=== PATIENT | female | born 1970 | race Caucasian/White ===

== ENCOUNTER 2016-04-18 00:07 | Emergency (ER) | payer OTHER ==
--- NOTE | 2016-04-18 01:06 | ED NURSING NOTES ---
Clinical Report - Nurses [facility] [address] [place] [address] 04/18/2016 0:08 [id number] Triage time 00:05 Apr 18 2016. Acuity: LEVEL 4. Chief Complaint: TOOTHACHE and CHIPPED TOOTH. SEPSIS SCREEN: Sepsis Screen: negative. Negative (no infection suspected/documented). HELEN COMA SCORE: Helen Coma Scale: 15- eyes open spontaneously (4); best verbal response- oriented x 4 (5); best motor response- obeys commands (6). --00:21 Kassi Be 00:12 04/18/16. BP: 125/79. HR: 110. RR: 20. O2 saturation: 97% on room air. Temp: 98.3 F (oral). Pain level now: 01/24. --00:21 Kassi Be. Weight: 91.6 kg stated. Height/Length: 67 inches Per Patient. BMI: 31.7. --00:13 Kassi Be. Medications Atenolol Oral 25 mg, daily. Gabapentin Oral (Tablet 800 mg), 3x a day. Omeprazole Oral 40 mg, daily. --00:14 Kassi Be Lactulose Oral. --00:14 Kassi Be Amitriptyline HCl Oral. --00:15 Kassi Be Keppra Oral. --00:15 Kassi Be Oxycodone-Acetaminophen Oral. --00:15 Kassi Be. Allergies Demerol.(nausea) Fentanyl. Probable(itching) --00:14 Kassi Be. Medication/allergy information source: the patient. --00:21 Kassi Be. History Arrived by EMS. Historian: patient. Accompanied by family. Primary physician (philip rangel). Onset. (2 days). ( Patient states she broke off a tooth on Monday. She reports that her pain has been unbearable.). She has no dental appointment scheduled. 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 See EMS report. PAST MEDICAL HX: Dental caries. Immunizations: up-to-date. SOCIAL HX: Never smoker. Regular alcohol use. (States she has been drinking heavily for the last two days due to pain). No drug use. No infectious disease exposure. ABUSE ASSESSMENT: No report of abuse. FALL RISK ASSESSMENT: Fall risk assessment completed. No fall risk identified. NUTRITIONAL RISK ASSESSMENT: The nutritional risk assessment revealed no deficiencies. FUNCTIONAL ASSESSMENT: Functional assessment: no impairments noted. LEARNING NEEDS ASSESSMENT: The learning needs assessment revealed no barriers. SKIN INTEGRITY ASSESSMENT: Skin integrity risk assessment completed. No skin integrity risk identified. --00:21 Kassi Be. PROBLEMS: Nausea. Hypertension. Anxiety Reaction. --00:20 Kassi Be. ADDITIONAL SURGERIES: Appendectomy. Back Surgery. Carpal Tunnel Surgery. . Hip Surgery. Knee Surgery. Tonsillectomy. --00: Kassi Be. Interventions ID band on patient. To treatment room. --00: Kassi Be. PHYSICAL ASSESSMENT Ambulatory to room. GENERAL / NEURO / PSYCH: Alert. Oriented X 4. Appears in no acute distress. HEENT: Extensive dental decay (left upper teeth, left lower teeth). RESPIRATORY: Respirations not labored. SKIN: Skin is warm and dry. --00:22 Kassi Be. NURSING PROGRESS NOTES Warming measures: blanket applied. Reassurance given to the patient. Two patient identifiers checked. Call light placed in reach. Side rails up x 1. Bed placed in lowest position. Brakes of bed on. Patient ready for evaluation- chart flagged. --00:22 Kassi Be 01:04/18/2016 Amoxicillin PO Capsules 500 mg given. Allergies verified and confirmed 5 rights. --01:05 Kassi Be 01:04/18/2016 Hydrocodone-APAP (Hydrocodone-Acetaminophen) PO 5/325 mg Tablets 1 tab given. Allergies verified, confirmed 5 rights and sedative warning given to the patient. --01:05 Kassi Be ( Patient given list of dental resources). --01:06 Kassi Be 01:06 04/18/16. BP: 109/57. HR: 113. RR: 20. O2 saturation: 100% on room air. Pain level now: 01/24. --01:06 Kassi Be. DISPOSITION / DISCHARGE Condition at departure: stable. No learning barriers present. Discharge instructions provided and reviewed with the patient. Reviewed medication(s) side effects, precautions, dosing and course information. Prescription(s) given to the patient. Reviewed need for increased fluid intake. Patient verbalized understanding. Written instructions provided in Bulgarian. ( Patient given resources for dental appointment. Patient advised to get next available dental appointment. Instructed to watch for signs of infection.). The patient was discharged by the physician. She was discharged home and accompanied by family. She left the Emergency Department ambulatory and via ([employer]). Driving ([employer]). ( 01:06 04/18/16. BP: 109/57. HR: 113. RR: 20. O2 saturation: 100% on room air. Pain level now: 01/24. 1:06 Kassi Be). --01:13 Kassi Be. Locked/Released at 04/18/2016 4:50 by Kassi Be,
--- NOTE | 2016-04-18 01:06 | ED CLINICAL REPORT ---
Clinical Report - Physicians/Mid Levels [facility] [address] [place] [address] 04/18/2016 0:08 Patient: AMRIK CHIANG Time Seen: 00:34. Arrived- By ambulance. Historian- patient and EMS personnel. HISTORY OF PRESENT ILLNESS Chief Complaint: DENTAL PAIN. This started just prior to arrival and is still present. Pain described as moderate. No sore throat, mouth sores, nasal discharge or congestion or ear pain. No swollen jaw or face, jaw pain or facial pain. She has had toothache. Similar symptoms previously: Recent medical care: Not recently seen/assessed. REVIEW OF SYSTEMS No fever, eye discomfort, cough, difficulty breathing or chest pain. No nausea, diarrhea, abdominal pain, difficulty with urination or headache. No fainting episodes, joint pain, skin rash, enlarged lymph nodes or vomiting. Denies current . All systems otherwise negative, except as recorded above. PAST HISTORY Problems: Dental Caries. Hypertension. Anxiety Reaction. LNMP - Last Normal Menstrual Period. Additional Surgeries: Appendectomy. Back Surgery. Carpal Tunnel Surgery. . Hip Surgery. Knee Surgery. Tonsillectomy. Medications: Oxycodone-Acetaminophen Oral. Keppra Oral. Amitriptyline HCl Oral. Lactulose Oral. Atenolol Oral 25 mg, daily. Gabapentin Oral (Tablet 800 mg), 3x a day. Omeprazole Oral 40 mg, daily. Allergies: Demerol.(nausea) Fentanyl. Probable(itching). SOCIAL HISTORY Never smoker. Alcohol use. No drug use. ADDITIONAL NOTES The nursing notes have been reviewed. PHYSICAL EXAM Vital Signs: 04/18/2016 00:12 BP: 125/79. HR: 110. RR: 20. O2 saturation: 97%. Temp: 98.3 F. Pain level now: 10/10. Have been reviewed. Appearance: Alert. No acute distress. Head: Normal external inspection. Eyes: Pupils equal, round and reactive to light. Conjunctivae and eyelids normal. ENT: Moderate, localized dental decay with gingival tenderness (upper left second molar). No gingival induration, swelling or fluctuance. Nose normal. Lips normal. Gums normal. No trismus present. Neck: Normal inspection. No adenopathy. Neck supple. CVS: Normal heart rate and rhythm. Heart sounds normal. Pulses normal. Respiratory: No respiratory distress. Breath sounds normal. Skin: Normal skin color. No rash. Normal skin turgor. Extremities: Extremities exhibit normal ROM. Neuro: Oriented X 3. No motor deficit. No sensory deficit. LABS, X-RAYS, AND EKG Pulse Oximetry: 04/18/2016 00:12 O2 saturation: 97%. (FIO2 - room air). Interpretation: normal. PROGRESS AND PROCEDURES Course of Care: PT was treated with amoxicillin, ibuprofen (pt refused this), and Vicodin. Patient counseled in person regarding the patient's stable condition, diagnosis and need for follow-up. Concerns were addressed. Old medical records reviewed. Disposition: Discharged. Condition: stable and improved. CLINICAL IMPRESSION Moderate dental pain. INSTRUCTIONS Drink plenty of fluids. Warnings: Further evaluation is necessary. SEDATIVE MEDICATION: You were given sedative medication during your visit. Do not drive or operate dangerous machinery. GENERAL WARNINGS: Return or contact your physician immediately if your condition worsens or changes unexpectedly, if not improving as expected, or if other problems arise. Your Current Medications: CONTINUE TAKING THE FOLLOWING MEDICATIONS: Amitriptyline HCl Oral. Atenolol Oral : 25 mg daily. Gabapentin Oral : Tablet 800 mg, 3x a day. Keppra Oral. Lactulose Oral. Omeprazole Oral : 40 mg daily. Oxycodone-Acetaminophen Oral. Prescription Medications: Hydrocodone/APAP 5mg / 325mg: take 1-2 orally every 6 hours as needed for pain. Dispense fifteen (15). No refill. Amoxicillin 500 mg tablets: take 1 orally every 8 hours for 10 days. No refills. Follow-up: Follow up with a dentist. Call for the next available appointment. Understanding of the discharge instructions verbalized by patient. (Electronically signed by Aisha Swanson MD 04/24/2016 21:30)
--- NOTE | 2016-04-18 01:06 | ED NURSING NOTES ---
Clinical Report - Nurses [facility] [address] [place] [address] 04/18/2016 0:08 [id number] Triage time 00:05 Apr 18 2016. Acuity: LEVEL 4. Chief Complaint: TOOTHACHE and CHIPPED TOOTH. SEPSIS SCREEN: Sepsis Screen: negative. Negative (no infection suspected/documented). HELEN COMA SCORE: Helen Coma Scale: 15- eyes open spontaneously (4); best verbal response- oriented x 4 (5); best motor response- obeys commands (6). --00:21 Kassi Be 00:12 04/18/16. BP: 125/79. HR: 110. RR: 20. O2 saturation: 97% on room air. Temp: 98.3 F (oral). Pain level now: 01/24. --00:21 Kassi Be. Weight: 91.6 kg stated. Height/Length: 67 inches Per Patient. BMI: 31.7. --00:13 Kassi Be. Medications Atenolol Oral 25 mg, daily. Gabapentin Oral (Tablet 800 mg), 3x a day. Omeprazole Oral 40 mg, daily. --00:14 Kassi Be Lactulose Oral. --00:14 Kassi Be Amitriptyline HCl Oral. --00:15 Kassi Be Keppra Oral. --00:15 Kassi Be Oxycodone-Acetaminophen Oral. --00:15 Kassi Be. Allergies Demerol.(nausea) Fentanyl. Probable(itching) --00:14 Kassi Be. Medication/allergy information source: the patient. --00:21 Kassi Be. History Arrived by EMS. Historian: patient. Accompanied by family. Primary physician (philip rangel). Onset. (2 days). ( Patient states she broke off a tooth on Monday. She reports that her pain has been unbearable.). She has no dental appointment scheduled. Treatment PSYCHOLOGIST EDUCATIONAL: See EMS report. EMS treatment PSYCHOLOGIST EDUCATIONAL verbally communicated. See EMS report. PAST MEDICAL HX: Dental caries. Immunizations: up-to-date. SOCIAL HX: Never smoker. Regular alcohol use. (States she has been drinking heavily for the last two days due to pain). No drug use. No infectious disease exposure. ABUSE ASSESSMENT: No report of abuse. FALL RISK ASSESSMENT: Fall risk assessment completed. No fall risk identified. NUTRITIONAL RISK ASSESSMENT: The nutritional risk assessment revealed no deficiencies. FUNCTIONAL ASSESSMENT: Functional assessment: no impairments noted. LEARNING NEEDS ASSESSMENT: The learning needs assessment revealed no barriers. SKIN INTEGRITY ASSESSMENT: Skin integrity risk assessment completed. No skin integrity risk identified. --00:21 Kassi Be. PROBLEMS: Nausea. Hypertension. Anxiety Reaction. --00:20 Kassi Be. ADDITIONAL SURGERIES: Appendectomy. Back Surgery. Carpal Tunnel Surgery. . Hip Surgery. Knee Surgery. Tonsillectomy. --00: Kassi Be. Interventions ID band on patient. To treatment room. --00: Kassi Be. PHYSICAL ASSESSMENT Ambulatory to room. GENERAL / NEURO / PSYCH: Alert. Oriented X 4. Appears in no acute distress. HEENT: Extensive dental decay (left upper teeth, left lower teeth). RESPIRATORY: Respirations not labored. SKIN: Skin is warm and dry. --00:22 Kassi Be. NURSING PROGRESS NOTES Warming measures: blanket applied. Reassurance given to the patient. Two patient identifiers checked. Call light placed in reach. Side rails up x 1. Bed placed in lowest position. Brakes of bed on. Patient ready for evaluation- chart flagged. --00:22 Kassi Be 01:04/18/2016 Amoxicillin PO Capsules 500 mg given. Allergies verified and confirmed 5 rights. --01:05 Kassi Be 01:04/18/2016 Hydrocodone-APAP (Hydrocodone-Acetaminophen) PO 5/325 mg Tablets 1 tab given. Allergies verified, confirmed 5 rights and sedative warning given to the patient. --01:05 Kassi Be ( Patient given list of dental resources). --01:06 Kassi Be 01:06 04/18/16. BP: 109/57. HR: 113. RR: 20. O2 saturation: 100% on room air. Pain level now: 01/24. --01:06 Kassi Be. DISPOSITION / DISCHARGE Condition at departure: stable. No learning barriers present. Discharge instructions provided and reviewed with the patient. Reviewed medication(s) side effects, precautions, dosing and course information. Prescription(s) given to the patient. Reviewed need for increased fluid intake. Patient verbalized understanding. Written instructions provided in Venezuelan. ( Patient given resources for dental appointment. Patient advised to get next available dental appointment. Instructed to watch for signs of infection.). The patient was discharged by the physician. She was discharged home and accompanied by family. She left the Emergency Department ambulatory and via ([employer]). Driving ([employer]). ( 01:06 04/18/16. BP: 109/57. HR: 113. RR: 20. O2 saturation: 100% on room air. Pain level now: 01/24. 1:06 Kassi Be). --01:13 Kassi Be. Locked/Released at 04/18/2016 4:50 by Kassi Be,
--- NOTE | 2016-04-18 01:06 | ED ORDER SUMMARY ---
..... Patient: AMRIK CHIANG OrderSheet [facility] VisitID: [id number] [place] [address] 45y, F Registration Date/Time: 04/18/2016 ORDER SHEET Weight: 91.6 kg (stated) Allergies: Demerol, Fentanyl GENERAL ORDERS: MEDICATION ORDERS: Amoxicillin PO 500 mg (NOW) (00:56 04/18/2016 Braden GONZALEZ) (Ack 0:58 HSoule) (1:05 HSoule) Hydrocodone-APAP PO 5/325 mg (NOW, HIGH ALERT MEDICATION) (00:56 04/18/2016 Braden GONZALEZ) (Ack 0:58 HSoule) (1:05 HSoule) Ibuprofen PO 800 mg (NOW) (00:56 04/18/2016 Braden GONZALEZ) (Ack 0:58 HSoule) (Cancelled: Patient Refusal, patient states she cannot have Ibuprofen 1:06 HSoule) IV FLUIDS: ORDER SHEET NOTES: [Electronically signed by Kassi Be (04:50 04/18/2016)] [Electronically signed by Aisha Swanson MD (21:30 04/24/2016)] [Electronically locked/signed by Kassi Be (04:50 04/18/2016)]
--- NOTE | 2016-04-18 01:06 | ED ORDER SUMMARY ---
..... Patient: AMRIK CHIANG OrderSheet [facility] VisitID: [id number] [place] [address] 45y, F Registration Date/Time: 04/18/2016 ORDER SHEET Weight: 91.6 kg (stated) Allergies: Demerol, Fentanyl GENERAL ORDERS: MEDICATION ORDERS: Amoxicillin PO 500 mg (NOW) (00:56 04/18/2016 Braden GONZALEZ) (Ack 0:58 HSoule) (1:05 HSoule) Hydrocodone-APAP PO 5/325 mg (NOW, HIGH ALERT MEDICATION) (00:56 04/18/2016 Bradne GONZALEZ) (Ack 0:58 HSoule) (1:05 HSoule) Ibuprofen PO 800 mg (NOW) (00:56 04/18/2016 Braden GONZALEZ) (Ack 0:58 HSoule) (Cancelled: Patient Refusal, patient states she cannot have Ibuprofen 1:06 HSoule) IV FLUIDS: ORDER SHEET NOTES: [Electronically signed by Kassi Be (04:50 04/18/2016)] [Electronically signed by Aisha Swanson MD (21:30 04/24/2016)] [Electronically locked/signed by Kassi Be (04:50 04/18/2016)]
--- NOTE | 2016-04-24 21:30 | ED DISCHARGE INSTRUCTIONS ---
Patient: AMRIK CHIANG General Instructions [facility] VisitID: [id number] [place] [address] 45y, F Registration Date/Time: 04/18/2016 Moderate dental pain. INSTRUCTIONS Drink plenty of fluids. Warnings: Further evaluation is necessary. SEDATIVE MEDICATION: You were given sedative medication during your visit. Do not drive or operate dangerous machinery. GENERAL WARNINGS: Return or contact your physician immediately if your condition worsens or changes unexpectedly, if not improving as expected, or if other problems arise. Your Current Medications: CONTINUE TAKING THE FOLLOWING MEDICATIONS: Amitriptyline HCl Oral. Atenolol Oral : 25 mg daily. Gabapentin Oral : Tablet 800 mg, 3x a day. Keppra Oral. Lactulose Oral. Omeprazole Oral : 40 mg daily. Oxycodone-Acetaminophen Oral. Prescription Medications: Hydrocodone/APAP 5mg / 325mg: take 1-2 orally every 6 hours as needed for pain. Dispense fifteen (15). No refill. Amoxicillin 500 mg tablets: take 1 orally every 8 hours for 10 days. No refills. Follow-up: Follow up with a dentist. Call for the next available appointment. Understanding of the discharge instructions verbalized by patient. ADDITIONAL INFORMATION Dental Pain A crack or cavity in the tooth, which exposes the sensitive inner area of the tooth can cause tooth pain. An infection in the gum or the root of the tooth can cause pain and swelling. The pain is often made worse by drinking hot or cold fluids, or biting on hard foods. Pain may spread from the tooth to the ear or jaw on the same side. Home Care: Avoid hot and cold foods and liquids since your tooth may be sensitive to temperature changes. If your tooth is chipped or cracked, or if there is a large open cavity, apply OIL OF CLOVES (available eyad-xow-osteugl in drug stores) directly to the tooth to reduce pain. Some pharmacies carry an xwnd-daq-nwcgtua "toothache kit." This contains a paste, which can be applied over the exposed tooth to decrease sensitivity. A cold pack on your jaw over the sore area may help reduce pain. You may use acetaminophen (Tylenol) or ibuprofen (Motrin, Advil) to control pain, unless another medicine was prescribed. [ NOTE: If you have chronic liver or kidney disease or ever had a stomach ulcer or GI bleeding, talk with your doctor before using these medicines.] If you have signs of an infection, an antibiotic will be given. Take it as directed. Follow-Up as directed with a dentist. Your pain may go away with the treatment given. However, only a dentist can fully evaluate and treat the cause and prevent the pain from coming back again. TOOTHACHE IS A SIGN OF DISEASE IN YOUR TOOTH AND SHOULD BE EXAMINED AND TREATED BY A DENTIST. Get Prompt Medical Attention if any of the following occur: Your face becomes swollen or red Pain worsens or spreads to the neck Fever over 100.4 F (38.0 C) Unusual drowsiness; headache or stiff neck; weakness or fainting Pus drains from the tooth Difficulty swallowing or breathing You have been given the following additional information: Dental Pain (Electronically signed by Aisha Swanson MD 04/24/2016 21:30)
--- NOTE | 2016-04-24 21:30 | ED MAR SUMMARY ---
..... Medication Administration Record [facility] [address] [place] [address] Patient: AMRIK CHIANG Visit ID: [id number] 45y, F Weight: 91.6 kg Height/Length: 67 in BMI: 31.7 ALLERGIES: Demerol, Fentanyl Given 01:04/18/2016 Kassi Be, Medication Administered: AMOXICILLIN [PO], Dose: 500 mg Capsules PO. Medication Ordered: Amoxicillin PO 500 mg (NOW). Given 01:04/18/2016 Kassi Be, Medication Administered: HYDROCODONE-APAP [PO] (HYDROCODONE-ACETAMINOPHEN), Dose: 1 tab 5/325 mg Tablets PO. Medication Ordered: Hydrocodone-APAP PO 5/325 mg (NOW, HIGH ALERT MEDICATION).
--- NOTE | 2016-04-24 21:30 | ED MAR SUMMARY ---
..... Medication Administration Record [facility] [address] [place] [address] Patient: AMRIK CHIANG Visit ID: [id number] 45y, F Weight: 91.6 kg Height/Length: 67 in BMI: 31.7 ALLERGIES: Demerol, Fentanyl Given 01:04/18/2016 Kassi Be, Medication Administered: AMOXICILLIN [PO], Dose: 500 mg Capsules PO. Medication Ordered: Amoxicillin PO 500 mg (NOW). Given 01:04/18/2016 Kassi Be, Medication Administered: HYDROCODONE-APAP [PO] (HYDROCODONE-ACETAMINOPHEN), Dose: 1 tab 5/325 mg Tablets PO. Medication Ordered: Hydrocodone-APAP PO 5/325 mg (NOW, HIGH ALERT MEDICATION).
--- NOTE | 2016-04-24 21:30 | ED MED RECONCILIATION SUMMARY ---
Patient: AMRIK CHIANG Medication Reconciliation Report [facility] VisitID: [id number] [address] [place] [address] 45y, F Registration Date/Time: 04/18/2016 Weight: 91.6 kg Height/Length: 67 in. BMI: 31.7 ALLERGIES: Demerol, Fentanyl The patient's Home Medications are listed below: CONTINUE TAKING THE FOLLOWING MEDICATIONS: Amitriptyline HCl Oral Atenolol Oral 25 mg, daily Gabapentin Oral (800 mg), 3x a day Keppra Oral Lactulose Oral Omeprazole Oral 40 mg, daily Oxycodone-Acetaminophen Oral The source(s) of the original Home Medication information: patient The following Medications were given to the patient in the Emergency Department: Amoxicillin [PO] PO 500 mg, administered: 04/18/2016 1:05:00 AM Hydrocodone-APAP [PO] PO 1 tab, administered: 04/18/2016 1:05:00 AM The following Medications were prescribed to the patient: Hydrocodone/APAP 5mg / 325mg: take 1-2 orally every 6 hours as needed for pain. Dispense fifteen (15). No refill. -- Aisha Swanson MD Amoxicillin 500 mg tablets: take 1 orally every 8 hours for 10 days. No refills. -- Aisha Swanson MD
--- NOTE | 2016-04-24 21:30 | ED DISCHARGE INSTRUCTIONS ---
Patient: AMRIK CHIANG General Instructions [facility] VisitID: [id number] [place] [address] 45y, F Registration Date/Time: 04/18/2016 Moderate dental pain. INSTRUCTIONS Drink plenty of fluids. Warnings: Further evaluation is necessary. SEDATIVE MEDICATION: You were given sedative medication during your visit. Do not drive or operate dangerous machinery. GENERAL WARNINGS: Return or contact your physician immediately if your condition worsens or changes unexpectedly, if not improving as expected, or if other problems arise. Your Current Medications: CONTINUE TAKING THE FOLLOWING MEDICATIONS: Amitriptyline HCl Oral. Atenolol Oral : 25 mg daily. Gabapentin Oral : Tablet 800 mg, 3x a day. Keppra Oral. Lactulose Oral. Omeprazole Oral : 40 mg daily. Oxycodone-Acetaminophen Oral. Prescription Medications: Hydrocodone/APAP 5mg / 325mg: take 1-2 orally every 6 hours as needed for pain. Dispense fifteen (15). No refill. Amoxicillin 500 mg tablets: take 1 orally every 8 hours for 10 days. No refills. Follow-up: Follow up with a dentist. Call for the next available appointment. Understanding of the discharge instructions verbalized by patient. ADDITIONAL INFORMATION Dental Pain A crack or cavity in the tooth, which exposes the sensitive inner area of the tooth can cause tooth pain. An infection in the gum or the root of the tooth can cause pain and swelling. The pain is often made worse by drinking hot or cold fluids, or biting on hard foods. Pain may spread from the tooth to the ear or jaw on the same side. Home Care: Avoid hot and cold foods and liquids since your tooth may be sensitive to temperature changes. If your tooth is chipped or cracked, or if there is a large open cavity, apply OIL OF CLOVES (available uuki-dki-szufafc in drug stores) directly to the tooth to reduce pain. Some pharmacies carry an sahk-arl-qtgmnuu "toothache kit." This contains a paste, which can be applied over the exposed tooth to decrease sensitivity. A cold pack on your jaw over the sore area may help reduce pain. You may use acetaminophen (Tylenol) or ibuprofen (Motrin, Advil) to control pain, unless another medicine was prescribed. [ NOTE: If you have chronic liver or kidney disease or ever had a stomach ulcer or GI bleeding, talk with your doctor before using these medicines.] If you have signs of an infection, an antibiotic will be given. Take it as directed. Follow-Up as directed with a dentist. Your pain may go away with the treatment given. However, only a dentist can fully evaluate and treat the cause and prevent the pain from coming back again. TOOTHACHE IS A SIGN OF DISEASE IN YOUR TOOTH AND SHOULD BE EXAMINED AND TREATED BY A DENTIST. Get Prompt Medical Attention if any of the following occur: Your face becomes swollen or red Pain worsens or spreads to the neck Fever over 100.4 F (38.0 C) Unusual drowsiness; headache or stiff neck; weakness or fainting Pus drains from the tooth Difficulty swallowing or breathing You have been given the following additional information: Dental Pain (Electronically signed by Aisha Swanson MD 04/24/2016 21:30)
--- NOTE | 2016-04-24 21:30 | ED MED RECONCILIATION SUMMARY ---
Patient: AMRIK CHIANG Medication Reconciliation Report [facility] VisitID: [id number] [address] [place] [address] 45y, F Registration Date/Time: 04/18/2016 Weight: 91.6 kg Height/Length: 67 in. BMI: 31.7 ALLERGIES: Demerol, Fentanyl The patient's Home Medications are listed below: CONTINUE TAKING THE FOLLOWING MEDICATIONS: Amitriptyline HCl Oral Atenolol Oral 25 mg, daily Gabapentin Oral (800 mg), 3x a day Keppra Oral Lactulose Oral Omeprazole Oral 40 mg, daily Oxycodone-Acetaminophen Oral The source(s) of the original Home Medication information: patient The following Medications were given to the patient in the Emergency Department: Amoxicillin [PO] PO 500 mg, administered: 04/18/2016 1:05:00 AM Hydrocodone-APAP [PO] PO 1 tab, administered: 04/18/2016 1:05:00 AM The following Medications were prescribed to the patient: Hydrocodone/APAP 5mg / 325mg: take 1-2 orally every 6 hours as needed for pain. Dispense fifteen (15). No refill. -- Aisha Swanson MD Amoxicillin 500 mg tablets: take 1 orally every 8 hours for 10 days. No refills. -- Aisha Swanson MD
== END 2016-04-18 01:10 | disposition home or self-care (01) ==
LOC: ED SRH 00:07
DX: K08.89 Other specified disorders of teeth and supporting structures (principal); I10 Essential (primary) hypertension; Z79.899 Other long term (current) drug therapy; Z88.5 Allergy status to narcotic agent; Z88.8 Allergy status to other drugs, medicaments and biological substances

== ENCOUNTER 2016-05-07 22:27 | Emergency (ER) | payer OTHER ==
--- NOTE | 2016-05-07 23:16 | ED ORDER SUMMARY ---
..... Patient: AMRIK CHIANG OrderSheet [facility] VisitID: [id number] [place] [address] 45y, F Registration Date/Time: 05/07/2016 ORDER SHEET Weight: 93.4 kg (stated) Allergies: Demerol, Fentanyl, Ibuprofen, Hydrocodone GENERAL ORDERS: Lumbar Spine 2 or 3V Urgent (22:45 05/07/2016 Leah Ferro) (Ack 22:52 [facility] Crew Leader Gluing) (23:03 RFay) Hip 2V Right w AP Pelvis Urgent (22:45 05/07/2016 Leah Ferro) (Ack 22:52 [facility] Crew Leader Gluing) (23:03 RFay) Knee 4V Left Urgent (22:45 05/07/2016 Leah Ferro) (Ack 22:52 [facility] Crew Leader Gluing) (23:03 RFay) MEDICATION ORDERS: Tdap IM 0.5 mL (NOW, per protocol) (22:43 05/07/2016 JQuivey R.N. per protocol) (Ack 22:43 JQuivey R.N.) (22:48 JQuivey R.N.) Toradol IM 60 mg (NOW) (23:56 05/07/2016 Leah Ferro) (0:00 JQuivey R.N.) Previously tolerated IV FLUIDS: ORDER SHEET NOTES: [Electronically signed by Cooper Castaneda Dr. (23:45 05/07/2016)] [Electronically signed by Yonny Russell R.N. (01:46 05/08/2016)] [Electronically locked/signed by Yonny Russell R.N. (01:46 05/08/2016)]
--- NOTE | 2016-05-07 23:16 | ED ORDER SUMMARY ---
..... Patient: AMRIK CHIANG OrderSheet [facility] VisitID: [id number] [place] [address] 45y, F Registration Date/Time: 05/07/2016 ORDER SHEET Weight: 93.4 kg (stated) Allergies: Demerol, Fentanyl, Ibuprofen, Hydrocodone GENERAL ORDERS: Lumbar Spine 2 or 3V Urgent (22:45 05/07/2016 Leah Ferro) (Ack 22:52 [facility] Manifest Clerk) (23:03 RFay) Hip 2V Right w AP Pelvis Urgent (22:45 05/07/2016 Leah Ferro) (Ack 22:52 [facility] Manifest Clerk) (23:03 RFay) Knee 4V Left Urgent (22:45 05/07/2016 Leah Ferro) (Ack 22:52 [facility] Manifest Clerk) (23:03 RFay) MEDICATION ORDERS: Tdap IM 0.5 mL (NOW, per protocol) (22:43 05/07/2016 JQuivey R.N. per protocol) (Ack 22:43 JQuivey R.N.) (22:48 JQuivey R.N.) Toradol IM 60 mg (NOW) (23:56 05/07/2016 Leah Ferro) (0:00 JQuivey R.N.) Previously tolerated IV FLUIDS: ORDER SHEET NOTES: [Electronically signed by Cooper Castaneda Dr. (23:45 05/07/2016)] [Electronically signed by Yonny Russell R.N. (01:46 05/08/2016)] [Electronically locked/signed by Yonny Russell R.N. (01:46 05/08/2016)]
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
--- NOTE | 2016-05-08 01:46 | ED MAR SUMMARY ---
..... Medication Administration Record [facility] [address] [place] [address] Patient: AMRIK CHIANG Visit ID: [id number] 45y, F Weight: 93.4 kg Height/Length: 68 in BMI: 31.3 ALLERGIES: Hydrocodone, Ibuprofen, Demerol, Fentanyl Given 22:48 05/07/2016 Yonny Russell, R.N. Medication Administered: TDAP [IM], Dose: 0.5 mL IM. Medication Ordered: Tdap IM 0.5 mL (NOW, per protocol). Given 00:00 05/08/2016 Yonny Russell, R.N. Medication Administered: TORADOL [IM] (KETOROLAC TROMETHAMINE), Dose: 60 mg IM. Medication Ordered: Toradol IM 60 mg (NOW).
--- NOTE | 2016-05-08 01:46 | ED DISCHARGE INSTRUCTIONS ---
Patient: AMRIK CHIANG General Instructions [facility] VisitID: [id number] [place] [address] 45y, F Registration Date/Time: 05/07/2016 Muscle strain of the low back. Multiple superficial abrasions to the right hand and left hand and left knee. Multiple contusions with abrasion to the right hip and left knee. INSTRUCTIONS Apply ice for 20 minutes four times a day. Don't apply ice directly to skin. Your Current Medications: CONTINUE TAKING THE FOLLOWING MEDICATIONS: Amitriptyline HCl Oral. Atenolol Oral : 25 mg daily. Gabapentin Oral : Tablet 800 mg, 3x a day. Keppra Oral. Lactulose Oral. Omeprazole Oral : 40 mg daily. OxyCODONE HCl Oral : 10 mg, prn. Prescription Medications: Baclofen 10 mg: take 1 orally every 8 hours. Dispense twenty (20). No refills. Oxycodone/APAP 5 mg/325 mg: take 1 tablet orally every 6 hours as needed for pain. Dispense ten (10). No refill. Follow-up: Follow up with your doctor in about two days. Call for an appointment. Blood pressure screening was not performed during this visit because the patient has an active diagnosis of hypertension. The patient should follow up with a primary care provider for blood pressure management. ADDITIONAL INFORMATION Abrasions Abrasions are skin scrapes. Their treatment depends on how large and deep the abrasion is. Home Care: If you were given a bandage, change it once a day. If your bandage sticks to the wound, soak it in warm water until it loosens. Wash the area with soap and water to remove all the cream/ointment. You may do this in a sink, under a tub faucet or shower. Rinse off the soap and pat dry with a clean towel. Reapply cream/ointment according to your doctor's instructions. This will prevent infection and help prevent the bandage from sticking. Cover the wound with a fresh non-stick bandage (Telfa). Repeat steps 1 to 4 daily, or as directed by your doctor. If the bandage becomes wet or dirty, change it as soon as possible. You may use acetaminophen (Tylenol) or ibuprofen (Motrin, Advil) to control pain, unless another pain medicine was prescribed. [ NOTE : If you have chronic liver or kidney disease or ever had a stomach ulcer or GI bleeding, talk with your doctor before using these medicines.] Do not use ibuprofen in children under six months of age. Follow Up with your physician or this facility as directed by our staff. Most skin wounds heal within ten days. However, an infection may occur despite proper treatment. Therefore, look for the early signs of infection listed below. Get Prompt Medical Attention if any of the following occur: Increasing pain in the wound Increasing redness or swelling Pus coming from the wound Fever of 100.4F (38C) or higher, or as directed by your healthcare provider Back Pain [Acute Or Chronic] Back pain is usually caused by an injury to the muscles or ligaments of the spine. Sometimes the disks that separate each bone in the spine may bulge and cause pain by pressing on a nearby nerve. Back pain may also appear after a sudden twisting/bending force (such as in a car accident), after a simple awkward movement, or lifting something heavy with poor body positioning. In either case, muscle spasm is often present and adds to the pain. Acute back pain usually gets better in one to two weeks. Back pain related to disk disease, arthritis in the spinal joints or spinal stenosis (narrowing of the spinal canal) can become chronic and last for months or years. Unless you had a physical injury (for example, a car accident or fall) X-rays are usually not ordered for the initial evaluation of back pain. If pain continues and does not respond to medical treatment, x-rays and other tests may be performed at a later time. Home Care: You may need to stay in bed the first few days. But, as soon as possible, begin sitting or walking to avoid problems with prolonged bed rest (muscle weakness, worsening back stiffness and pain, blood clots in the legs). When in bed, try to find a position of comfort. A firm mattress is best. Try lying flat on your back with pillows under your knees. You can also try lying on your side with your knees bent up towards your chest and a pillow between your knees. Avoid prolonged sitting. This puts more stress on the lower back than standing or walking. During the first two days after injury, apply an ICE PACK to the painful area for 20 minutes every 2-4 hours. This will reduce swelling and pain. HEAT (hot shower, hot bath or heating pad) works well for muscle spasm. You can start with ice, then switch to heat after two days. Some patients feel best alternating ice and heat treatments. Use the one method that feels the best to you. You may use acetaminophen (Tylenol) or ibuprofen (Motrin, Advil) to control pain, unless another pain medicine was prescribed. [NOTE: If you have chronic liver or kidney disease or ever had a stomach ulcer or GI bleeding, talk with your doctor before using these medicines.] Be aware of safe lifting methods and do not lift anything over 15 pounds until all the pain is gone. Follow Up with your doctor or this facility if your symptoms do not start to improve after one week. Physical therapy may be needed. [NOTE: If X-rays were taken, they will be reviewed by a radiologist. You will be notified of any new findings that may affect your care.] Get Prompt Medical Attention if any of the following occur: Pain becomes worse or spreads to your legs Weakness or numbness in one or both legs Loss of bowel or bladder control Numbness in the groin or genital area Contusion,Soft Tissue You have a CONTUSION, which is a bruise with swelling and some bleeding under the skin. There are no broken bones. This injury takes a few days to a few weeks to heal. Home Care: 1) Keep the injured part elevated to reduce pain and swelling. This is especially important during the first 48 hours. 2) Make an ice pack (ice cubes in a plastic bag, wrapped in a towel) and apply for 20 minutes every 1-2 hours the first day. Continue this 3-4 times a day until the pain and swelling goes away. 3) You may use acetaminophen (Tylenol) or ibuprofen (Motrin, Advil) to control pain, unless another pain medicine was prescribed. [ NOTE : If you have chronic liver or kidney disease or ever had a stomach ulcer or GI bleeding, talk with your doctor before using these medicines.] Follow Up with your doctor or this facility if you are not improving within the next THREE days. [NOTE: If X-rays were taken, they will be reviewed by a radiologist. You will be notified of any new findings that may affect your care.] Get Prompt Medical Attention if any of the following occur: -- Pain or swelling increases -- Injured arm or leg becomes cold, blue, numb or tingly -- Redness, warmth or drainage from the skin Oxycodone Hydrochloride, Acetaminophen Oral tablet What is this medicine? ACETAMINOPHEN; OXYCODONE (a set a ALONA alana fen; ox i KOE done) is a pain reliever. It is used to treat mild to moderate pain. How should I use this medicine? Take this medicine by mouth with a full glass of water. Follow the directions on the prescription label. Take your medicine at regular intervals. Do not take your medicine more often than directed. Talk to your production control clerk regarding the use of this medicine in children. Special care may be needed. Patients over 65 years old may have a stronger reaction and need a smaller dose. What side effects may I notice from receiving this medicine? Side effects that you should report to your doctor or health foster care social worker as soon as possible: allergic reactions like skin rash, itching or hives, swelling of the face, lips, or tongue breathing difficulties, wheezing confusion light headedness or fainting spells severe stomach pain yellowing of the skin or the whites of the eyes Side effects that usually do not require medical attention (report to your doctor or health foster care social worker if they continue or are bothersome): dizziness drowsiness nausea vomiting What may interact with this medicine? alcohol antihistamines barbiturates like amobarbital, butalbital, butabarbital, methohexital, pentobarbital, phenobarbital, thiopental, and secobarbital benztropine drugs for bladder problems like solifenacin, trospium, oxybutynin, tolterodine, hyoscyamine, and methscopolamine drugs for breathing problems like ipratropium and tiotropium drugs for certain stomach or intestine problems like propantheline, homatropine methylbromide, glycopyrrolate, atropine, belladonna, and dicyclomine general anesthetics like etomidate, ketamine, nitrous oxide, propofol, desflurane, enflurane, halothane, isoflurane, and sevoflurane medicines for depression, anxiety, or psychotic disturbances medicines for sleep muscle relaxants naltrexone narcotic medicines (opiates) for pain phenothiazines like perphenazine, thioridazine, chlorpromazine, mesoridazine, fluphenazine, prochlorperazine, promazine, and trifluoperazine scopolamine tramadol trihexyphenidyl What if I miss a dose? If you miss a dose, take it as soon as you can. If it is almost time for your next dose, take only that dose. Do not take double or extra doses. Where should I keep my medicine? Keep out of the reach of children. This medicine can be abused. Keep your medicine in a safe place to protect it from theft. Do not share this medicine with anyone. Selling or giving away this medicine is dangerous and against the law. Store at room temperature between 20 and 25 degrees C (68 and 77 degrees F). Keep container tightly closed. Protect from light. This medicine may cause accidental overdose and if it is taken by other adults, children, or pets. Flush any unused medicine down the toilet to reduce the chance of harm. Do not use the medicine after the expiration date. What should I tell my health care provider before I take this medicine? They need to know if you have any of these conditions: brain tumor Crohn's disease, inflammatory bowel disease, or ulcerative colitis drink more than 3 alcohol containing drinks per day drug abuse or addiction head injury heart or circulation problems kidney disease or problems going to the bathroom liver disease lung disease, asthma, or breathing problems an unusual or allergic reaction to acetaminophen, oxycodone, other opioid analgesics, other medicines, foods, dyes, or preservatives or trying to get breast-feeding What should I watch for while using this medicine? Tell your doctor or health foster care social worker if your pain does not go away, if it gets worse, or if you have new or a different type of pain. You may develop tolerance to the medicine. Tolerance means that you will need a higher dose of the medication for pain relief. Tolerance is normal and is expected if you take this medicine for a long time. Do not suddenly stop taking your medicine because you may develop a severe reaction. Your body becomes used to the medicine. This does NOT mean you are addicted. Addiction is a behavior related to getting and using a drug for a non-medical reason. If you have pain, you have a medical reason to take pain medicine. Your doctor will tell you how much medicine to take. If your doctor wants you to stop the medicine, the dose will be slowly lowered over time to avoid any side effects. You may get drowsy or dizzy. Do not drive, use machinery, or do anything that needs mental alertness until you know how this medicine affects you. Do not stand or sit up quickly, especially if you are an older patient. This reduces the risk of dizzy or fainting spells. Alcohol may interfere with the effect of this medicine. Avoid alcoholic drinks. There are different types of narcotic medicines (opiates) for pain. If you take more than one type at the same time, you may have more side effects. Give your health care provider a list of all medicines you use. Your doctor will tell you how much medicine to take. Do not take more medicine than directed. Call emergency for help if you have problems breathing. The medicine will cause constipation. Try to have a bowel movement at least every 2 to 3 days. If you do not have a bowel movement for 3 days, call your doctor or health foster care social worker. Do not take Tylenol (acetaminophen) or medicines that have acetaminophen with this medicine. Too much acetaminophen can be very dangerous. Many nonprescription medicines contain acetaminophen. Always read the labels carefully to avoid taking more acetaminophen. You have been given the following additional information: Abrasion Back Pain (Acute Or Chronic) Contusion, Soft Tissue Oxycodone Hydrochloride, Acetaminophen Oral tablet (Electronically signed by Cooper Castaneda Dr. 05/07/2016 23:45)
--- NOTE | 2016-05-08 01:46 | ED MAR SUMMARY ---
..... Medication Administration Record [facility] [address] [place] [address] Patient: AMRIK CHIANG Visit ID: [id number] 45y, F Weight: 93.4 kg Height/Length: 68 in BMI: 31.3 ALLERGIES: Hydrocodone, Ibuprofen, Demerol, Fentanyl Given 22:48 05/07/2016 Yonny Russell, R.N. Medication Administered: TDAP [IM], Dose: 0.5 mL IM. Medication Ordered: Tdap IM 0.5 mL (NOW, per protocol). Given 00:00 05/08/2016 Yonny Russell, R.N. Medication Administered: TORADOL [IM] (KETOROLAC TROMETHAMINE), Dose: 60 mg IM. Medication Ordered: Toradol IM 60 mg (NOW).
--- NOTE | 2016-05-08 01:46 | ED MED RECONCILIATION SUMMARY ---
Patient: AMRIK CHIANG Medication Reconciliation Report [facility] VisitID: [id number] [place] [address] 45y, F Registration Date/Time: 05/07/2016 Weight: 93.4 kg Height/Length: 68 in. BMI: 31.3 ALLERGIES: Demerol, Fentanyl, Hydrocodone, Ibuprofen The patient's Home Medications are listed below: CONTINUE TAKING THE FOLLOWING MEDICATIONS: Amitriptyline HCl Oral Atenolol Oral 25 mg, daily Gabapentin Oral (800 mg), 3x a day Keppra Oral Lactulose Oral Omeprazole Oral 40 mg, daily OxyCODONE HCl Oral 10 mg The source(s) of the original Home Medication information: patient The following Medications were given to the patient in the Emergency Department: TDAP [IM] IM 0.5 mL, administered: 05/07/2016 10:48:00 PM Toradol [IM] IM 60 mg, administered: 05/08/2016 12:00:00 AM The following Medications were prescribed to the patient: Baclofen 10 mg: take 1 orally every 8 hours. Dispense twenty (20). No refills. -- Cooper Castaneda Dr. Oxycodone/APAP 5 mg/325 mg: take 1 tablet orally every 6 hours as needed for pain. Dispense ten (10). No refill. -- Cooper Castaneda Dr.
--- NOTE | 2016-05-08 01:46 | ED MED RECONCILIATION SUMMARY ---
Patient: AMRIK CHIANG Medication Reconciliation Report [facility] VisitID: [id number] [place] [address] 45y, F Registration Date/Time: 05/07/2016 Weight: 93.4 kg Height/Length: 68 in. BMI: 31.3 ALLERGIES: Demerol, Fentanyl, Hydrocodone, Ibuprofen The patient's Home Medications are listed below: CONTINUE TAKING THE FOLLOWING MEDICATIONS: Amitriptyline HCl Oral Atenolol Oral 25 mg, daily Gabapentin Oral (800 mg), 3x a day Keppra Oral Lactulose Oral Omeprazole Oral 40 mg, daily OxyCODONE HCl Oral 10 mg The source(s) of the original Home Medication information: patient The following Medications were given to the patient in the Emergency Department: TDAP [IM] IM 0.5 mL, administered: 05/07/2016 10:48:00 PM Toradol [IM] IM 60 mg, administered: 05/08/2016 12:00:00 AM The following Medications were prescribed to the patient: Baclofen 10 mg: take 1 orally every 8 hours. Dispense twenty (20). No refills. -- Cooper Castaneda Dr. Oxycodone/APAP 5 mg/325 mg: take 1 tablet orally every 6 hours as needed for pain. Dispense ten (10). No refill. -- Cooper Castaneda Dr.
== END 2016-05-08 00:02 | disposition home or self-care (01) ==
LOC: ED SRH 22:27
DX: S39.012A Strain of muscle, fascia and tendon of lower back, initial encounter (principal); S70.01XA Contusion of right hip, initial encounter; S80.02XA Contusion of left knee, initial encounter; S60.511A Abrasion of right hand, initial encounter; S60.512A Abrasion of left hand, initial encounter; V03.90XA Pedestrian on foot injured in collision with car, pick-up truck or van, unspecified whether traffic or nontraffic accident, initial encounter; Y93.01 Activity, walking, marching and hiking; Y92.9 Unspecified place or not applicable; Z79.891 Long term (current) use of opiate analgesic; Y99.9 Unspecified external cause status

== ENCOUNTER 2016-09-06 10:28 | Emergency (ER) | payer OTHER ==
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
--- NOTE | 2016-09-06 12:14 | ED ORDER SUMMARY ---
..... Patient: AMRIK CHIANG OrderSheet [facility] VisitID: [id number] [address] [place] [address] 46y, F Registration Date/Time: 09/06/2016 ORDER SHEET Weight: 96.6 kg (stated) Allergies: Demerol, Fentanyl, Hydrocodone, Ibuprofen GENERAL ORDERS: Ankle 3 or 4V Left Urgent (11:09/06/2016 Braden GONZALEZ) (Ack 11:35 MSouse ER Tech1) (11:53 SBalde R.N.) Scapula Right Urgent (11:09/06/2016 Braden GONZALEZ) (Ack 11:35 MSouse ER Tech1) (11:53 SBalde R.N.) MEDICATION ORDERS: Toradol IM 60 mg (NOW) (11:09/06/2016 Braden GONZALEZ) (Ack 11:53 SBalde R.N.) (11:58 SBalde R.N.) Oxycodone-APAP PO 5/325 mg (HIGH ALERT MEDICATION, NOW) (11:09/06/2016 Braden GONZALEZ) (Ack 11:53 SBalde R.N.) (11:58 SBalde R.N.) IV FLUIDS: ORDER SHEET NOTES: [Electronically signed by Candice Roche R.N. (13:09/06/2016)] [Electronically signed by Aisha Swanson MD (02:59 09/08/2016)] [Electronically locked/signed by Candice Roche R.N. (13:09/06/2016)]
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
--- NOTE | 2016-09-06 12:14 | ED ORDER SUMMARY ---
..... Patient: AMRIK CHIANG OrderSheet [facility] VisitID: [id number] [address] [place] [address] 46y, F Registration Date/Time: 09/06/2016 ORDER SHEET Weight: 96.6 kg (stated) Allergies: Demerol, Fentanyl, Hydrocodone, Ibuprofen GENERAL ORDERS: Ankle 3 or 4V Left Urgent (11:09/06/2016 Braden GONZALEZ) (Ack 11:35 MOouse ER Tech1) (11:53 SBalde R.N.) Scapula Right Urgent (11:09/06/2016 Braden GONZALEZ) (Ack 11:35 MOouse ER Tech1) (11:53 SBalde R.N.) MEDICATION ORDERS: Toradol IM 60 mg (NOW) (11:09/06/2016 Braden GONZALEZ) (Ack 11:53 SBalde R.N.) (11:58 SBalde R.N.) Oxycodone-APAP PO 5/325 mg (HIGH ALERT MEDICATION, NOW) (11:09/06/2016 Braden GONZALEZ) (Ack 11:53 SBalde R.N.) (11:58 SBalde R.N.) IV FLUIDS: ORDER SHEET NOTES: [Electronically signed by Candice Roche R.N. (13:09/06/2016)] [Electronically signed by Aisha Swanson MD (02:59 09/08/2016)] [Electronically locked/signed by Candice Roche R.N. (13:09/06/2016)]
--- NOTE | 2016-09-06 16:36 | DIAGNOSTIC IMAGING REPORT ---
PROCEDURE: XR ANKLE 3 OR 4 VIEWS - LEFT INDICATION: TRAUMA/INJURY TECHNIQUE: Four views left ankle COMPARISON: None. FINDINGS: There is an old healed fracture of the lateral malleolus. The ankle mortise is intact. IMPRESSION: 1. Old healed lateral malleolar fracture. Soft tissue swelling.
--- NOTE | 2016-09-06 17:20 | DIAGNOSTIC IMAGING REPORT ---
PROCEDURE: XR SCAPULA - RIGHT INDICATION: TRAUMA/INJURY TECHNIQUE: Two views of the right scapula and shoulder. COMPARISON: None available FINDINGS: There is a comminuted fracture involving the glenoid. There is also a comminuted fracture involving the head of the humerus. There is slight anterior displacement of the humerus. IMPRESSION: 1. Comminuted fracture involving the glenoid. 2. Comminuted fracture involving the humeral head with of slight anterior displacement.
--- NOTE | 2016-09-08 03:00 | ED MED RECONCILIATION SUMMARY ---
Patient: AMRIK CHIANG Medication Reconciliation Report [facility] VisitID: [id number] [address] [place] [address] 46y, F Registration Date/Time: 09/06/2016 Weight: 96.6 kg Height/Length: 68 in. BMI: 32.4 ALLERGIES: Demerol, Fentanyl, Hydrocodone, Ibuprofen The patient's Home Medications are listed below: CONTINUE TAKING THE FOLLOWING MEDICATIONS: Gabapentin Oral (800 mg), 3x a day Keppra Oral, pt states she doesn'tr have to take it ? Omeprazole Oral 40 mg, daily The source(s) of the original Home Medication information: Not obtained. The following Medications were given to the patient in the Emergency Department: Toradol [IM] IM 60 mg, administered: 09/06/2016 11:58:00 AM Oxycodone-APAP [PO] PO 1 tab, administered: 09/06/2016 11:58:00 AM The following Medications were prescribed to the patient: Oxycodone/APAP 5 mg/325 mg: take 1 tablet orally every 6 hours as needed for pain. Dispense twelve (12). No refill. -- Aisha Swanson MD
--- NOTE | 2016-09-08 03:00 | ED MAR SUMMARY ---
..... Medication Administration Record [facility] [address] [place] [address] Patient: AMRIK CHIANG Visit ID: [id number] 46y, F Weight: 96.6 kg Height/Length: 68 in BMI: 32.4 ALLERGIES: Demerol, Fentanyl, Hydrocodone, Ibuprofen Given 11:09/06/2016 Candice Roche RSallyNSally Medication Administered: TORADOL [IM] (KETOROLAC TROMETHAMINE), Dose: 60 mg IM. Medication Ordered: Toradol IM 60 mg (NOW). Given 11:09/06/2016 Candice Roche, RSallyN. Medication Administered: OXYCODONE-APAP [PO] (OXYCODONE-ACETAMINOPHEN), Dose: 1 tab 5/325 mg Tablets PO. Medication Ordered: Oxycodone-APAP PO 5/325 mg (HIGH ALERT MEDICATION, NOW).
--- NOTE | 2016-09-08 03:00 | ED DISCHARGE INSTRUCTIONS ---
Patient: AMRIK CHIANG General Instructions [facility] VisitID: [id number] [address] [place] [address] 46y, F Registration Date/Time: 09/06/2016 Closed displaced coracoid fracture of the right scapula. Closed non-displaced left lateral malleolus fracture (subacute, healing). No angulated ankle fracture present. INSTRUCTIONS (It is very important that you follow up with the orthopedist, as per the discharge instructions you were given at [facility]. Your ankle is healing well, but your shoulder blade needs to be rechecked by an orthopedist, to see if it needs surgery.). Warnings: GENERAL WARNINGS: Return or contact your physician immediately if your condition worsens or changes unexpectedly, if not improving as expected, or if other problems arise. Your Current Medications: CONTINUE TAKING THE FOLLOWING MEDICATIONS: Gabapentin Oral : Tablet 800 mg, 3x a day. Keppra Oral : pt states she doesn'tr have to take it ? Omeprazole Oral : 40 mg daily. Prescription Medications: Oxycodone/APAP 5 mg/325 mg: take 1 tablet orally every 6 hours as needed for pain. Dispense twelve (12). No refill. Understanding of the discharge instructions verbalized by patient. Follow-up with: Micah Jeffries M.D., Ortho, , [address] [place], [id number] Follow up. Call for the next available appointment. Reason for referral: Displaced scapular fracture. ADDITIONAL INFORMATION Fracture,Ankle, Distal Fibula You have a fracture (broken bone) of the end of the fibula bone. This is one of two bones that support the ankle joint. Home Care: You will be given a splint, cast or special boot to prevent movement at the site of injury. Do not put weight on a splint; it will break. Follow your doctor's advice regarding when to begin bearing weight on a cast or boot. Keep your leg elevated when sitting or lying down. When sleeping, place a pillow under the injured leg. When sitting, support the injured leg so it is level with your waist. This is very important during the first 48 hours. Keep the cast/splint completely dry at all times. When bathing, protect the cast/splint with a large plastic bag, rubber-banded at the top end. If a fiberglass cast or splint gets wet, you can dry it with a hair-dryer. Place an ice pack (ice cubes in a plastic bag, wrapped in a towel) on the splint/cast over the injured area for 20 minutes every 2 hours during the first day.You can place the ice pack directly over the splint/cast. Continue this 3-4 times a day for the next two days. You may use acetaminophen (Tylenol) or ibuprofen (Motrin, Advil) to control pain, unless another pain medicine was prescribed. [NOTE: If you have chronic liver or kidney disease or ever had a stomach ulcer or GI bleeding, talk with your doctor before using these medicines.] Follow Up with your doctor in one week, or as advised by our staff, to be sure the bone is healing properly. If you were given a splint, it may be changed to a cast after the swelling goes down. [NOTE: A radiologist will review any X-rays that were taken. We will notify you of any new findings that may affect your care.] Get Prompt Medical Attention if any of the following occur: The plaster cast or splint becomes wet or soft The fiberglass cast or splint remains wet for more than 24 hours Increased tightness or pain under the cast or splint Toes become swollen, cold, blue, numb or tingly Shoulder Fracture [Shoulder Immobilizer] You have a break (fracture) of the shoulder. This may be a small crack in the bone. Or it may be a major break with the broken parts pushed out of position. If there is only a crack in the bone and no bone fragments are out of place, a shoulder fracture is usually treated with a shoulder immobilizer. This is a special type of sling. (Casts are not used for this type of fracture.) Healing of the bone usually occurs in 4-6 weeks. More serious injuries may require surgery to put the bones back into the correct position for healing. Home Care: Leave the shoulder immobilizer in place. This will support the injured arm at your side. This is the best position for bone healing. The shoulder immobilizer is adjustable. If it becomes loose, adjust it so that your forearm is horizontal (level with the ground). Your hand should be level with the elbow. Apply an ice pack (ice cubes in a plastic bag, wrapped in a towel) over the injured area for 20 minutes every 1-2 hours the first day. Continue with ice packs 3-4 times a day for the next two days, then as needed for the relief of pain and swelling. You may use acetaminophen (Tylenol) or ibuprofen (Motrin, Advil) to control pain, unless another pain medicine was prescribed. (NOTE : If you have chronic liver or kidney disease or ever had a stomach ulcer or GI bleeding, talk with your doctor before using these medicines.) Do not remove the sling before your next exam unless you were instructed to do so. Follow Up with your doctor in one week, or as advised by our staff, to be sure the bone is healing properly. A shoulder joint will become stiff if left in a sling for too long. Ask your doctor when it is safe to begin [id number] exercises. Get Prompt Medical Attention if any of the following occur: Fingers become swollen, cold, blue, numb or tingly Large amount of swelling or bruising of the shoulder or upper arm Increasing shoulder pain or arm swelling You have been given the following additional information: Ankle Fracture (Distal Fibula), Closed Fracture, Shoulder (Electronically signed by Aisha Swanson MD 09/08/2016 2:59)
--- NOTE | 2016-09-08 03:00 | ED MAR SUMMARY ---
..... Medication Administration Record [facility] [address] [place] [address] Patient: AMRIK CHIANG Visit ID: [id number] 46y, F Weight: 96.6 kg Height/Length: 68 in BMI: 32.4 ALLERGIES: Demerol, Fentanyl, Hydrocodone, Ibuprofen Given 11:09/06/2016 Candice Roche RSallyNSally Medication Administered: TORADOL [IM] (KETOROLAC TROMETHAMINE), Dose: 60 mg IM. Medication Ordered: Toradol IM 60 mg (NOW). Given 11:09/06/2016 Candice Roche, RSallyN. Medication Administered: OXYCODONE-APAP [PO] (OXYCODONE-ACETAMINOPHEN), Dose: 1 tab 5/325 mg Tablets PO. Medication Ordered: Oxycodone-APAP PO 5/325 mg (HIGH ALERT MEDICATION, NOW).
--- NOTE | 2016-09-08 03:00 | ED MED RECONCILIATION SUMMARY ---
Patient: AMRIK CHIANG Medication Reconciliation Report [facility] VisitID: [id number] [address] [place] [address] 46y, F Registration Date/Time: 09/06/2016 Weight: 96.6 kg Height/Length: 68 in. BMI: 32.4 ALLERGIES: Demerol, Fentanyl, Hydrocodone, Ibuprofen The patient's Home Medications are listed below: CONTINUE TAKING THE FOLLOWING MEDICATIONS: Gabapentin Oral (800 mg), 3x a day Keppra Oral, pt states she doesn'tr have to take it ? Omeprazole Oral 40 mg, daily The source(s) of the original Home Medication information: Not obtained. The following Medications were given to the patient in the Emergency Department: Toradol [IM] IM 60 mg, administered: 09/06/2016 11:58:00 AM Oxycodone-APAP [PO] PO 1 tab, administered: 09/06/2016 11:58:00 AM The following Medications were prescribed to the patient: Oxycodone/APAP 5 mg/325 mg: take 1 tablet orally every 6 hours as needed for pain. Dispense twelve (12). No refill. -- Aisha Swanson MD
== END 2016-09-06 13:10 | disposition home or self-care (01) ==
LOC: ED SRH 10:28
DX: S42.131D Displaced fracture of coracoid process, right shoulder, subsequent encounter for fracture with routine healing (principal); S82.65XD Nondisplaced fracture of lateral malleolus of left fibula, subsequent encounter for closed fracture with routine healing; Y04.0XXD Assault by unarmed brawl or fight, subsequent encounter; I10 Essential (primary) hypertension; Z79.899 Other long term (current) drug therapy; Z88.5 Allergy status to narcotic agent; Z88.6 Allergy status to analgesic agent; Z87.891 Personal history of nicotine dependence; Z59.0 Homelessness